=== PATIENT | female | born 1980 | race Asian ===

== ENCOUNTER 2024-03-12 18:38 | Emergency (ER) | payer SELFPAY ==
[~2024-03-12] VITALS: Ht 162.6 cm; Wt 56.8 kg
[2024-03-12 18:40] VITALS: BP 133/86; PULSE 100; RESP 16; TEMP 98; O2SAT 98
[2024-03-12 18:54] LABS: COVID AG,FIA SOURCE NASAL SWAB
[2024-03-12 19:12] LABS: SARS-COV2 (COVID) ANTIGEN,FIA Negative (Negative)
[2024-03-12 19:14] LABS: INFLUENZA TYPE B NEGATIVE FOR TYPE B (NEGATIVE)
[2024-03-12 19:23] LABS: INFLUENZA TYPE A POSITIVE FOR TYPE A (NEGATIVE)
[2024-03-12] MEDS ORDERED: OSEL75CA45 PO (19:42)
== END 2024-03-12 20:30 | disposition home or self-care (01) ==
LOC: EMS 18:45
DX: J11.1 Influenza due to unidentified influenza virus with other respiratory manifestations (principal); Z20.822 Contact with and (suspected) exposure to COVID-19
CPT/HCPCS: 87804; 99283